=== PATIENT | male | born 1990 | race Caucasian/White ===

== ENCOUNTER 2020-07-27 00:33 | Emergency (ER) | payer OTHER, SELFPAY ==
[2020-07-27] VITALS (9 sets, daily range): BP systolic 99–155; BP diastolic 38–92; PULSE 79–100; RESP 18–28; TEMP 36.3–36.4; O2SAT 94–95; BMI 28.8
--- NOTE | 2020-07-27 00:49 | ED_ITS ---
HPI - Psych General Chief Complaint: Psychiatric Symptoms Stated Complaint: crisis/SI/HI Time Seen by Provider: 07/27/20 00:39 Source: EMS Mode of arrival: EMS Limitations: altered mental status History of Present Illness HPI Narrative: patient is brought by EMS and police department. Patient called 911 because he said he wanted to kill himself. On arrival, patient was very combative, tried punching EMS and police department, also tried biting them. Patient was restrained and brought to the emergency room. At this time, patient is intoxicated with alcohol, belligerent and very combative, keeps trying to k ick, punch and bite the staff. Patient yelling that he will kill everybody in the pod complaint: substance abuse Related Data Allergies Allergy/AdvReac Type Severity Reaction Status Date / Time No Known Allergies Allergy Verified 07/27/20 00:39 Review of Systems Review of Systems: Yes Unobtainable due to mental status PMFSH Past Medical History Medical History (Updated 07/27/20 @ 01:30 by Laura Priest) Alcohol abuse Anxiety Delusions Depression Suicidal behavior Suicidal ideation Social History Social History Alcohol intake: current Alcohol intake frequency: 3 or more drinks per day Alcohol type: beer, wine and hard liquor Smoking Status: Current every day smoker Use of substances other than those prescribed or required for medical reasons: Refusing to respond Physical Exam Vital Signs: Vital Signs: Last Vital Signs Temp 97.6 F 07/27/20 01:15 Pulse 100 07/27/20 01:15 Resp 18 07/27/20 01:15 BP 99/38 L 07/27/20 01:15 Pulse Ox 95 07/27/20 01:15 Body Mass Index 28.8 Appearance: Alert. combative, belligerent, trying to punch, kick and bite people Eyes: Pupils equal, round and reactive to light. ENT: Pharynx normal. Neck: Normal inspection. CVS: tachycardic Respiratory: No respiratory distress. Abdomen: Soft and nontender. Skin: Skin warm and dry. . Extremities: No lower extremity edema. No lower extremity edema. No Lacerations. No Rash Neuro: GOVERNMENT RELATIONS MANAGER 2 through 12 grossly intact Psych: making SI and HI statements, intoxicated, belligerent and combative Course Course Course Narrative: after 1 hour, restraints were removed, patient is calm, sleeping MDM - Psych Restraints Face to Face Assessment: Face to Face Assessment: Current Situation: After assessment of the patient, a review of the pertinent medical record and a discussion with nursing staff, I feel the patient requires a restrain intervention. Reaction To: [] Medical Condition: [] Behavioral State: [] Continued Need: [] Critical Care Time Critical Care Time Total Critical Care Time: 60
--- NOTE | 2020-07-27 01:49 | PC.NURSE ---
Documentation of behavior and ems background: 0040: patient arrives by [facility] in PD custody after calling emergency services due to Suicidal Ideation. Per EMS, patient was found to be drinking a handle of tequlia, 2 glasses of wine, and approximately 6 beers. It was reported that the patient has had signficant life stressors, including a recent break up with his girlfriend and the of his mother. Patient was originally cooperative on scene, but had a dramatic change in behavior, patient became suspicious, stated that the first response crew was against him and [works]for the [employer]. Furthermore, during transport, patient attempted to create a ligature risk from hanging IV tourniquets. Upon arrival, patient was given the option to act in behavioral control to remove the need for chemical and physical restraints. patient began to rear off stretcher, clearly agitated by the use of respirator by staff You're going to gas me and give me covid. You tie me up, they fucked me up. I don't like this. You're juanita i'm like this otherwise.... Multiple security officers and [employer] facilitated the movement from EMS Stretcher to bed. Patient began screaming and continued to exhibit unsafe behavior. Multiple attempts made to verbally deescalate behavior by various staff members without a positive response. 0045: patient medicated with IM 5mg Haldol, 2mg Ativan, 50mg Benadryl per md order. Patient unable to be changed over due to unsafe behavior. sitter at bedside 1;1 0100: patient remains out of behavioral control at this time. Patient screaming I NEED MEDICAL ATTENTION. What's your name?! mutiple attempts made to reoriented patient to place, time, and event. 0105: patient is now calm affect and willing to be communicated with staff. [place] Scale completed. Vague plan reported, but has confirmed SI attempt in past. Though process remains disorganized at this time. sitter remains 1;1 a this time. 0115: patient is calm and resting at this time. thought process is disorganized. continuing to monitor at this time for behavioral control.
[2020-07-27] MEDS: LORazepam 2 MG/ML VIAL IM (02:11)
[2020-07-27] MEDS: Haloperidol Lactate 5 MG/ML VIAL IM (02:11)
[2020-07-27] MEDS: diphenhydrAMINE HCL 50 MG/ML VIAL IM (02:12)
--- NOTE | 2020-07-27 06:28 | PC.NURSE ---
PT woke up drowsy, but calm and cooperative. He provided a urine sample at this time. PT asked when he would be seen by the doctor.
[2020-07-27 07:16] LABS: Amphetamine Screen Urine Not Detected (Not Detect); Barbiturates, Urine Not Detected (Not Detect); Benzodiazepines Screen Urine Not Detected (Not Detect); Cannabinoid Screen Urine Not Detected (Not Detect); Cocaine Screen Urine Not Detected (Not Detect); Opiate Screen Urine Not Detected (Not Detect); Phencyclidine Screen Urine Not Detected (Not Detect)
[2020-07-27 10:31] LABS: Ethanol 140 mg/dL
--- NOTE | 2020-07-27 11:39 | PC.NURSE ---
Report received. Pt currently asleep. No signs of distress. Respirations even, nonlabored.
--- NOTE | 2020-07-27 12:39 | PC.NURSE ---
[facility] faxed and called, spoke with Mally.
--- NOTE | 2020-07-27 13:36 | PC.NURSE ---
Pt resting in bed, no complaints, calm and cooperative. Waiting to be seen by [facility].
--- NOTE | 2020-07-27 14:27 | PC.NURSE ---
[facility] meeting with patient
--- NOTE | 2020-07-27 15:05 | PC.NURSE ---
Pt watching TV in common area, calm and cooperative, awaiting discharge.
== END 2020-07-27 15:16 | disposition home or self-care (01) ==
PROVIDERS: Physician Assistant; Emergency Provider Emergency Medicine
DX: F33.1 Major depressive disorder, recurrent, moderate (principal); R45.851 Suicidal ideations; F10.129 Alcohol abuse with intoxication, unspecified; Y90.9 Presence of alcohol in blood, level not specified; F17.200 Nicotine dependence, unspecified, uncomplicated; Z71.6 Tobacco abuse counseling; Z71.51 Drug abuse counseling and surveillance of drug abuser
CPT/HCPCS: 80307; 80320; 96372; 99285; 99291; J1200; J2060

== ENCOUNTER 2020-12-25 22:26 | Emergency (ER) | payer OTHER, SELFPAY ==
--- NOTE | ~2020-12-25 | XR_ITS ---
EXAMINATION: XR CHEST CLINICAL INFORMATION: Cough COMPARISON: None TECHNIQUE: Frontal view of the chest was obtained. FINDINGS: The heart and pulmonary vessels appear normal. There are scattered slightly ill-defined pulmonary parenchymal densities seen. No pleural effusions. No CHF. XR/XR chest 1V IMPRESSION: Commonly reported imaging features of Covid 19 or viral pneumonia are present. Other processes such as influenza pneumonia or organizing pneumonia, as can be seen with drug toxicity and connective tissue disease, can cause a similar imaging pattern. No prior radiographs are available to see if any of the changes are chronic in nature.
[2020-12-25 22:27] VITALS: BP 135/75; BP 155/95; PULSE 80; PULSE 82; RESP 16; TEMP 38.2; O2SAT 95; O2SAT 96; BMI 26.4
--- NOTE | 2020-12-25 22:47 | ED.URI ---
HPI - URI/Sore Throat General Chief Complaint: Fever Stated Complaint: ?COVID,BODY ACHES,CHILLS Source: patient Mode of arrival: ambulatory Limitations: no limitations History of Present Illness HPI Narrative: 30-year-old male with no significant past medical history presents with several days of upper respiratory symptoms, cough, fevers and chills. Patient is requesting COVID-19 testing at this time. He denies chest pain or pressure, palpitations, shortness of breath, shortness of breath on exertion, abdominal pain, abdominal distention, nausea, vomiting, diarrhea, constipation, melena, hematochezia, edema, or any other concerning symptoms. MD elicited complaint: fever, cough and nasal congestion Onset (ago): day(s) Consistency: constant Severity: moderate Description of mucous: clear Able to tolerate fluids by mouth: Yes Relieving factors: nothing Associated symptoms: fever, chills, myalgias, rhinorrhea and cough Treatments prior to arrival: none Related Data Previous Rx's Medication Instructions Recorded azithromycin 250 mg PO DAILY 5 Days #5 tab 12/25/20 cefuroxime axetil 500 mg PO Q12H 7 Days #14 tab 12/25/20 Allergies Allergy/AdvReac Type Severity Reaction Status Date / Time No Known Allergies Allergy Verified 12/25/20 22:31 Review of Systems Review of Systems: Constitutional: positive Fever, positive Chills, positive fatigue, positive Malaise ENT/Mouth: positive sore throat, positive runny nose Eyes: No Discharge Cardiovascular: No Chest Pain, No SOB Respiratory: Positive Cough, No Sputum, No Wheezing, No Smoke Exposure, No Dyspnea Gastrointestinal: No Nausea, No Vomiting, No Diarrhea Genitourinary: no irregular bleeding, No Dysuria, No Urinary Frequency, No Hematuria, No Urinary Incontinence, No Urgency, No Flank Pain, Musculoskeletal: positive Myalgia Skin: No rash Neuro: No Headache Yes all other systems are reviewed and are negative [facility] Past Medical History Attestation statement: The following information was validated with the patient. Source: old records reviewed Medical History (Updated 12/25/20 @ 23:54 by Jeanne Smart NP) Alcohol abuse Anxiety Delusions Depression Suicidal behavior Suicidal ideation Social History Social History Alcohol intake: current Alcohol intake frequency: 3 or more drinks per day Alcohol type: beer, wine and hard liquor Smoking Status: Current every day smoker Advance Directives: No Advance Directives Information Provided: No Physical Exam Vital Signs: Vital Signs: Last Vital Signs Temp 100.7 F H 12/25/20 22:27 Pulse 82 12/25/20 22:27 Resp 16 12/25/20 22:27 BP 155/95 H 12/25/20 22:27 Pulse Ox 96 12/25/20 22:27 Body Mass Index 26.4 Appearance: Alert. Oriented X3. Mild distress. Eyes: Pupils equal, round and reactive to light. EOMI, sclera nonicteric ENT: Pharynx normal. Moist mucous membranes. Neck: Normal inspection. Neck supple. CVS: Normal heart rate and rhythm. Pulses normal. Respiratory: No respiratory distress. Lung sounds clear to auscultation all lobes. Abdomen: Soft and nontender. Skin: Skin warm and dry. Normal skin color. Normal skin turgor. Extremities: No lower extremity edema. Moves all extremities against resistance. Neuro: No motor deficit. No sensory deficit. Cranial nerves 2-12 intact. Course Course Course Narrative: 30-year-old male presents with upper respiratory symptoms consistent with COVID-19. Will test for COVID-19 and chest x-ray Chest x-ray is positive for COVID-19 infiltrates. Will treat with azithromycin and cefuroxime. Patient's O2 sat is 96% on room air, patient is not short of breath and does not have any adventitious lung sounds. COVID test is positive. Patient will be discharged home with supportive measures. Patient verbalized understanding of and agrees to plan of care along with state and Federal guidelines for social isolation for COVID-19. MDM - URI/Sore Throat Differential Diagnosis Differential diagnosis: Likely upper respiratory infection, viral infection, bronchitis, influenza and pharyngitis Medical Records Attestation: I reviewed the patient's medical records. Lab Data Attestation: I reviewed the patient's lab results. Imaging Data Chest x-ray: Attestation: I personally reviewed and interpreted this imaging study as follows: Radiologist's impression: EXAMINATION: XR CHEST CLINICAL INFORMATION: Cough COMPARISON: None TECHNIQUE: Frontal view of the chest was obtained. FINDINGS: The heart and pulmonary vessels appear normal. There are scattered slightly ill-defined pulmonary parenchymal densities seen. No pleural effusions. No CHF. XR/XR chest 1V IMPRESSION: Commonly reported imaging features of Covid 19 or viral pneumonia are present. Other processes such as influenza pneumonia or organizing pneumonia, as can be seen with drug toxicity and connective tissue disease, can cause a similar imaging pattern. No prior radiographs are available to see if any of the changes are chronic in nature. Discharge Plan Discharge Clinical Impression: COVID-19 Patient Disposition: Home, Self-Care Instructions: COVID-19 (Coronavirus Disease 2019) (ED) Additional Instructions: Your evaluated in the emergency department for upper respiratory symptoms consistent with COVID-19. Your x-ray is positive for COVID-19. Please maintain social isolation for State and Federal guidelines. Is your responsibility to maintain these guidelines. Please take all medications as prescribed. Complete the entire course of these medications. Thank you for choosing this emergency department for evaluation. Please follow-up with primary care physician as needed. Return to the emergency department for any new, concerning, or worsening symptoms. Prescriptions: New azithromycin 250 mg tablet 250 mg PO DAILY 5 Days Qty: 5 RF: 0 cefuroxime axetil 500 mg tablet 500 mg PO Q12H 7 Days Qty: 14 RF: 0
--- NOTE | 2020-12-25 23:43 | PC.NURSE ---
COVID/Flu/RSV swab obtained and sent to lab for analysis. Awaiting results. Pending X-Ray results, plan for discharge home. Plan to medicate with Motrin for fever of 100.7F orally.
[2020-12-26] MEDS: Azithromycin 500 MG TABLET PO (00:16)
[2020-12-26] MEDS: Ibuprofen 600 MG TABLET PO (00:16)
[2020-12-26 00:20] LABS: Influenza A PCR NEGATIVE (Negative); Influenza B PCR NEGATIVE (Negative); Resp Syncy Virus RNA Qual PCR NEGATIVE (Negative)
[2020-12-26 00:28] LABS: SARS COV2 PCR INHOUSE POSITIVE (Negative)
== END 2020-12-26 00:44 | disposition home or self-care (01) ==
PROVIDERS: Nurse Practitioner Family; Emergency Provider Emergency Medicine
DX: U07.1 COVID-19 (principal); R50.9 Fever, unspecified
CPT/HCPCS: 0241U; 36415; 71045; 99283

== ENCOUNTER 2025-09-10 16:24 | Emergency (ER) | payer OTHER, SELFPAY ==
--- NOTE | ~2025-09-10 | CT_ITS ---
CLINICAL HISTORY: headache with paresthesia CT head without contrast Comparison: None provided Findings: No intra-axial mass, midline shift, hydrocephalus, or acute hemorrhage. No significant atrophy-like change or white matter disease. There is no sinus or mastoid fluid. The orbits are within normal limits. There is no acute fracture. IMPRESSION: 1. No acute intracranial findings. This document has been electronically signed by: Olya Putnam MD on 09/10/2025 17:56:38
--- NOTE | 2025-09-10 16:30 | ED_ITS ---
[facility] - General Adult General Chief complaint: Neuro Symptoms/Deficit Stated complaint: sudden dizziness, blurred vision Time Seen by Provider: 09/10/25 16:32 Source: patient Mode of arrival: ambulatory Limitations: no limitations History of Present Illness ED Provider: Dr. Gomez [facility] narrative: 35-year-old male presented hospital today for evaluation of sudden onset of dizziness, lip tingling sensation, heaviness all over his body and headache. Patient denies any recent illness. The patient has no medical history. Patient stated that this started around noon time. Patient denies any weakness. He denies any vertiginous symptoms. Patient is a stated that he has tingling sensation in bilateral lips area. Also has a headache. Related Data Previous Rx's ?Medication ?Instructions ?Recorded azithromycin 250 mg tablet 250 mg PO DAILY 5 days #5 t abs 12/25/20 cefuroxime axetil 500 mg tablet 500 mg PO Q12H 7 days #14 tabs 12/25/20 Allergies Allergy/AdvReac Type Severity Reaction Status Date / Time No Known Allergies Allergy Verified 09/10/25 16:35 Review of Systems 2 Review of Systems: Pertinent review of systems as mentioned in HPI. All other system otherwise negative. [facility] Past Medical History [facility] Narrative: None Medical History Delusions Suicidal ideation Suicidal behavior Anxiety Depression Alcohol abuse Social History Social History Alcohol intake: current Alcohol intake frequency: 3 or more drinks per day Alcohol type: beer, wine and hard liquor Smoked in Last 30 Days: No Use of substances other than those prescribed or required for medical reasons: No Advance Directives: No Advance Directives Information Provided: No Physical Exam ED Exam Exam: General: Pleasant, no distress, interacting appropriately Head: Normacephalic, atraumatic ENT: oral mucosa moist, neck supple, no tracheal deviation Cardiovascular: regular rate, regular rhythm, no murmurs, rubbing, gallops Respiratory: CTAB, no wheeze, rales, rhonchi Gastrointestinal: Soft, non distended, non tender, non guarding Neurological: Awake and alert, no facial droop noted, see NIH score for stroke evaluation. Skin: Warm and dry Psychiatric: Appropriate mood and thoughts Vital Signs: Vital Signs - 24 hr 09/10/25 16:32 Temperature 98.6 F Pulse Rate 84 Respiratory Rate 18 Blood Pressure 140/97 H Pulse Oximetry 97 Oxygen Delivery Method Room Air BMI result Body Mass Index 30.2 NIH Stroke Scale Level of Consciousness: Alert Level of Consciousness Questions: Answers both questions correctly Level of Consciousness Commands: Performs both tasks correctly Best Gaze: Normal Visual: No visual loss Facial Palsy: Normal Motor Arm (Right): No drift Motor Arm (Left): No drift Motor Leg (Right): No drift Motor Leg (Left): No drift Limb Ataxia: Absent Sensory: Normal Best Language: No aphasia Dysarthia: Normal Extinction and Inattention: No abnormality Score: 0 Medications Administered Discontinued Medications Generic Name Dose Route Start Last Admin Trade Name Freq PRN Reason Stop Dose Admin Acetaminophen 975 mg 09/10/25 16:32 09/10/25 16:42 Acetaminophen 325 Mg Tablet PO 09/10/25 16:33 975 mg ONCE ONE Administration Sodium Chloride 1,000 mls @ 999 mls/hr 09/10/25 16:45 09/10/25 17:59 Ns IV 09/10/25 17:45 Infused .Q1H1M OLIVIA Infusion Magnesium Sulfate 2 gm in 50 mls @ 50 mls/hr 09/10/25 16:32 09/10/25 17:59 Magnesium Sulfate/H2o IV 09/10/25 17:31 Infused ONCE ONE Infusion Metoclopramide HCl 5 mg 09/10/25 16:32 09/10/25 16:43 Metoclopramide Hcl 10 Mg/2 Ml Vial IV 09/10/25 16:33 5 mg ONCE ONE Administration Medical Decision Making Medical Decision Making [facility] Narrative: 35-year-old male no medical history presented hospital today for sudden onset of numbness tingling in the lips, headache, and heaviness all over his body. Patient's presentation is very atypical for a stroke. I did consider TNK for the patient however patient is unfortunately outside the time window at this time. Patient's symptoms is not lateralizing. I do not think patient has a stroke. We will obtain basic lab work this time. We will treat patient's as a complex migraine. We will obtain basic lab work. CT head will be obtained to rule out any signs of intracranial bleed or neoplasm. Plan to give IV fluid Reglan magnesium sulfate to treat his headache. I did consider TNK however patient is not TNK candidate due to timing and NIH score of 0. Patient's lab work is unremarkable, Lyme test is pending at this time. CT head negative. We will plan to discharge patient home. I do not think patient is having a stroke. Differential Diagnosis Differential Diagnoses: The differential diagnosis associated with the presentation includes CVA, migraine, lightheadedness, dizziness Lab Data MDM Lab Attestation statement: I reviewed the patient's lab results. 09/10/25 16:47 09/10/25 16:47 Labs: Lab Results 09/10/25 Range/Units 16:47 WBC 5.7 (4.8-10.8) X10*3/uL RBC 5.20 (4.60-5.80) X10*6/uL Hgb 15.8 (14.0-18.0) g/dl Hct 45.9 (42.0-52.0) % MCV 88.3 (80.0-98.0) fL MCH 30.4 (27.0-33.0) pg MCHC 34.4 (31.0-36.0) g/dl RDW 11.9 (11.0-16.0) % Plt Count 213 (160-400) X10*3/uL MPV 10.0 (9.4-12.4) fL Immature Gran % (Auto) 0.5 H (0.0-0.4) % Neut % (Auto) 54.1 (45-73) % Lymph % (Auto) 31.8 (20-40) % [place] % (Auto) 8.3 (2-11) % Eos % (Auto) 4.1 H (0-4) % Baso % (Auto) 1.2 (0-2) % Lymph # (Auto) 1.8 (1.2-4.9) X10*3/uL [place] # (Auto) 0.5 (0.1-1.2) X10*3/uL Eos # (Auto) 0.2 (0.0-0.4) X10*3/uL Baso # (Auto) 0.1 (0.0-0.2) X10*3/uL Abs Immat Gran (auto) 0.03 (0.00-0.03) X10*3/uL Absolute Neuts (auto) 3.1 (2.0-8.3) x10*3/uL Absolute Nucleated RBC 0.000 (0.0-0.012) X10*3/uL Nucleated RBC % (auto) 0.0 (0.0-0.2) /100WBC Sodium 138 (135-145) mmol/L Potassium 3.7 (3.3-5.1) mmol/L Chloride 107 (96-108) mmol/L Carbon Dioxide 23 (22-29) mmol/L Anion Gap 12 (12-20) BUN 20 H (9-16) mg/dL Creatinine 1.07 (0.5-1.4) mg/dL Estim Creat Clear Calc 115.1 Estimated GFR > 60 Random Glucose 115 (60-115) mg/dL Calcium 9.0 (8.4-10.2) mg/dL Magnesium 1.9 (1.6-2.6) mg/dL Independent Interpretation I performed an independent interpretation of an: CT Scan Radiology Impression Discussion of test interpretation with radiology: I have reviewed the radiologist's reading. Critical Care Time Critical Care Time Critical Care Time: Yes Total Critical Care Time: 40 Attestation: Time is exclusive of separately billable procedures. Time includes: direct patient care, patient reassessment, coordination of patient care, interpretation of data (laboratory data, pulse oximetry, arterial blood gases and chest xrays), review of patient's medical records, medical consultation and documentation of patient care. Procedures excluded from critical care time: central intravenous line placement and electrocardiography. Discharge Plan Discharge Clinical Impression: Light-headedness Patient Disposition: Home, Self-Care Additional Instructions: Follow up with PCP about your lyme test result. Prescriptions: No Action azithromycin 250 mg tablet 250 mg PO DAILY 5 Days Qty: 5 0RF cefuroxime axetil 500 mg tablet 500 mg PO Q12H 7 Days Qty: 14 0RF Print Language: Ukrainian
[2025-09-10 16:32] VITALS: BP 140/97; BP 170/80; PULSE 70; PULSE 84; RESP 18; TEMP 37; O2SAT 97; BMI 30.2
[2025-09-10] MEDS: Magnesium Sulfate/H2O 2 GM/50 ML PIGGYBACK IV (16:43)
[2025-09-10 16:54] LABS: MANUAL DIFF FLAG NO
[2025-09-10 16:56] LABS: Hematocrit 45.9 % (42.0-52.0); Hemoglobin 15.8 g/dl (14.0-18.0); Imm Gran Abs Auto 0.03 X10*3/uL (0.00-0.03); Imm Gran Pct Auto 0.5 % (0.0-0.4); Lymphocytes Absolute Auto 1.8 X10*3/uL (1.2-4.9); Mean Corpuscular HGB Conc 34.4 g/dl (31.0-36.0); Mean Corpuscular Hemoglobin 30.4 pg (27.0-33.0); Mean Corpuscular Volume 88.3 fL (80.0-98.0); NRBC Abs Auto 0.000 X10*3/uL (0.0-0.012); NRBC Pct Auto 0.0 /100WBC (0.0-0.2); Platelet Count 213 X10*3/uL (160-400); Red Blood Count 5.20 X10*6/uL (4.60-5.80); White Blood Count 5.7 X10*3/uL (4.8-10.8)
[2025-09-10 17:16] LABS: Anion Gap 12 (12-20); Blood Urea Nitrogen 20 mg/dL (9-16); Calcium 9.0 mg/dL (8.4-10.2); Carbon Dioxide 23 mmol/L (22-29); Chloride 107 mmol/L (96-108); Creatinine Clr Calc Pharmacy 115.1; Estimated Glomerular Filt Rate > 60; Magnesium 1.9 mg/dL (1.6-2.6); Potassium 3.7 mmol/L (3.3-5.1); Sodium 138 mmol/L (135-145)
[2025-09-10 19:51] VITALS: BP 137/80; PULSE 64; RESP 14; TEMP 36.5; O2SAT 95
[2025-09-10 20:18] VITALS: BP 137/80; PULSE 64; RESP 14; TEMP 36.5; O2SAT 95
[2025-09-11 21:19] LABS: Lyme Disease DNA PCR NOT DETECTED (NOT DETECTED)
== END 2025-09-10 20:19 | disposition home or self-care (01) ==
PROVIDERS: Emergency Provider Student in an Organized Health Care Education/Training Program
DX: R42 Dizziness and giddiness (principal); H53.8 Other visual disturbances; R51.9 Headache, unspecified; R20.2 Paresthesia of skin
CPT/HCPCS: 36415; 70450; 80048; 83735; 85025; 96361; 96374; 99285; J2765; J3475

== ENCOUNTER → 2025-09-10 16:32 | Outpatient (BNV) | payer OTHER, SELFPAY | PROVIDERS: Emergency Provider Student in an Organized Health Care Education/Training Program; Visit Provider Radiology Diagnostic Radiology | DX: R51.9 Headache, unspecified (principal); R20.2 Paresthesia of skin | CPT/HCPCS: 70450 ==

== ENCOUNTER 2025-09-14 17:05 | Emergency (ER) | payer OTHER, SELFPAY ==
--- NOTE | 2025-09-14 | ECG_ITS ---
Test Reason : CP Blood Pressure : */* mmHG Vent. Rate : 62 BPM Atrial Rate : 62 BPM P-R Int : 124 ms QRS Dur : 86 ms QT Int : 410 ms P-R-T Axes : 11 29 35 degrees QTcB Int : 416 ms Normal sinus rhythm Normal ECG No previous ECGs available Referred By: Generic ED Physician Electronically Signed By: AMMON CHAVES
--- NOTE | ~2025-09-14 | XR_ITS ---
CLINICAL HISTORY: cp 2 view chest x-ray. Comparison: None Findings: No consolidation or effusion. Cardiac and mediastinal contours are unremarkable. Bones unremarkable. Impression: 1. No acute pulmonary disease. This document has been electronically signed by: Mumtaz Ignacio MD on 09/14/2025 18:25:10
[2025-09-14 17:29] VITALS: BP 139/64; PULSE 68; RESP 18; TEMP 36.6; O2SAT 97; BMI 30.7
--- NOTE | 2025-09-14 17:30 | ED.CHESTPAIN ---
HPI - Chest Pain General Chief Complaint: Chest Pain Stated Complaint: chest pain Related Data Previous Rx's ?Medication ?Instructions ?Recorded azithromycin 250 mg tablet 250 mg PO DAILY 5 days #5 tabs 12/25/20 cefuroxime axetil 500 mg tablet 500 mg PO Q12H 7 days #14 tabs 12/25/20 Allergies Allergy/AdvReac Type Severity Reaction Status Date / Time No Known Allergies Allergy Verified 09/14/25 17:32 [facility] Past Medical History Medical History Delusions Suicidal ideation Suicidal behavior Anxiety Depression Alcohol abuse Social History Social History Alcohol intake: current Alcohol intake frequency: 3 or more drinks per day Alcohol type: beer, wine and hard liquor Advance Directives: No Advance Directives Information Provided: No Do you have a plan to hurt others: No Plan Physical Exam Vital Signs: Vital Signs: Last Vital Signs Temp 97.9 F 09/14/25 17:29 Pulse 68 09/14/25 17:29 Resp 18 09/14/25 17:29 BP 139/64 09/14/25 17:29 Pulse Ox 97 09/14/25 17:29 O2 Del Method Room Air 09/14/25 17:29 BMI result Body Mass Index 30.7 Course Course Course Narrative: This is a Rapid Medical Exam performed in triage by Ny Gabriel PA-C. Full HPI, ROS and PE to be performed by primary ED provider. 35 yo M presenting to the ED c/o intermittent chest pain worsening today w/assoc SOB. Patient was seen in ED on Saturday for other sx. Admits to sx x years but worsening today. PE: talking in complete sentences, NAD, nontoxic appearing Plan: EKG, labs, CXR, SARs Medical Decision Making Lab Data 09/14/25 19:21 09/14/25 19:21 Labs: Lab Results 09/14/25 Range/Units 19:21 WBC 5.6 (4.8-10.8) X10*3/uL RBC 5.29 (4.60-5.80) X10*6/uL Hgb 16.0 (14.0-18.0) g/dl Hct 47.6 (42.0-52.0) % MCV 90.0 (80.0-98.0) fL MCH 30.2 (27.0-33.0) pg MCHC 33.6 (31.0-36.0) g/dl RDW 12.1 (11.0-16.0) % Plt Count 221 (160-400) X10*3/uL MPV 10.2 (9.4-12.4) fL Immature Gran % (Auto) 0.4 (0.0-0.4) % Neut % (Auto) 60.7 (45-73) % Lymph % (Auto) 27.3 (20-40) % [place] % (Auto) 6.6 (2-11) % Eos % (Auto) 3.2 (0-4) % Baso % (Auto) 1.8 (0-2) % Lymph # (Auto) 1.5 (1.2-4.9) X10*3/uL [place] # (Auto) 0.4 (0.1-1.2) X10*3/uL Eos # (Auto) 0.2 (0.0-0.4) X10*3/uL Baso # (Auto) 0.1 (0.0-0.2) X10*3/uL Abs Immat Gran (auto) 0.02 (0.00-0.03) X10*3/uL Absolute Neuts (auto) 3.4 (2.0-8.3) x10*3/uL Absolute Nucleated RBC 0.000 (0.0-0.012) X10*3/uL Nucleated RBC % (auto) 0.0 (0.0-0.2) /100WBC Sodium 141 (135-145) mmol/L Potassium 4.2 (3.3-5.1) mmol/L Chloride 107 (96-108) mmol/L Carbon Dioxide 27 (22-29) mmol/L Anion Gap 11 L (12-20) BUN 16 (9-16) mg/dL Creatinine 0.95 (0.5-1.4) mg/dL Estim Creat Clear Calc 130.6 Estimated GFR > 60 Random Glucose 95 (60-115) mg/dL Calcium 9.3 (8.4-10.2) mg/dL Total Bilirubin 0.7 (0.0-1.0) mg/dL Direct Bilirubin 0.2 (0.0-0.5) mg/dL AST 31 (5-37) U/L ALT 43 H (0-40) U/L Alkaline Phosphatase 73 (39-117) U/L Troponin I High Sens < 2.7 (<3.5-35.0) ng/L Total Protein 7.8 (6.5-8.0) g/dL Albumin 4.7 (3.5-5.0) g/dL TSH 0.95 (0.32-4.0) uIU/mL Influenza Type A (PCR) NEGATIVE (Negative) Influenza Type B (PCR) NEGATIVE (Negative) RSV RNA Qual (PCR) NEGATIVE (Negative) SARS-CoV-2 RNA (RT-PCR) NEGATIVE (Negative) Discharge Plan Discharge Clinical Impression: Chest pain Patient Disposition: Left W/O Completing Treatment Prescriptions: No Action azithromycin 250 mg tablet 250 mg PO DAILY 5 Days Qty: 5 0RF cefuroxime axetil 500 mg tablet 500 mg PO Q12H 7 Days Qty: 14 0RF Discharge Date/Time: 09/14/25 22:22
[2025-09-14 19:27] LABS: MANUAL DIFF FLAG NO
[2025-09-14 19:44] LABS: Alanine Aminotransferase 43 U/L (0-40); Albumin Level 4.7 g/dL (3.5-5.0); Alkaline Phosphatase 73 U/L (39-117); Anion Gap 11 (12-20); Aspartate Amino Transferase 31 U/L (5-37); Blood Urea Nitrogen 16 mg/dL (9-16); Calcium 9.3 mg/dL (8.4-10.2); Carbon Dioxide 27 mmol/L (22-29); Chloride 107 mmol/L (96-108); Creatinine Clr Calc Pharmacy 130.6; Estimated Glomerular Filt Rate > 60; Potassium 4.2 mmol/L (3.3-5.1); Sodium 141 mmol/L (135-145); Total Protein 7.8 g/dL (6.5-8.0)
[2025-09-14 19:46] LABS: Hematocrit 47.6 % (42.0-52.0); Hemoglobin 16.0 g/dl (14.0-18.0); Imm Gran Abs Auto 0.02 X10*3/uL (0.00-0.03); Imm Gran Pct Auto 0.4 % (0.0-0.4); Lymphocytes Absolute Auto 1.5 X10*3/uL (1.2-4.9); Mean Corpuscular HGB Conc 33.6 g/dl (31.0-36.0); Mean Corpuscular Hemoglobin 30.2 pg (27.0-33.0); Mean Corpuscular Volume 90.0 fL (80.0-98.0); NRBC Abs Auto 0.000 X10*3/uL (0.0-0.012); NRBC Pct Auto 0.0 /100WBC (0.0-0.2); Platelet Count 221 X10*3/uL (160-400); Red Blood Count 5.29 X10*6/uL (4.60-5.80); White Blood Count 5.6 X10*3/uL (4.8-10.8)
[2025-09-14 19:51] LABS: Troponin-I High Sensitivity < 2.7 ng/L (<3.5-35.0)
[2025-09-14 20:12] LABS: Resp Syncy Virus RNA Qual PCR NEGATIVE (Negative); SARS COV2 PCR INHOUSE NEGATIVE (Negative)
== END 2025-09-14 22:22 | disposition left against medical advice (07) ==
PROVIDERS: Physician Assistant; Emergency Provider Emergency Medicine
DX: R07.9 Chest pain, unspecified (principal); Z03.818 Encounter for observation for suspected exposure to other biological agents ruled out; R06.02 Shortness of breath; Z79.899 Other long term (current) drug therapy
CPT/HCPCS: 36415; 71046; 80048; 80076; 84443; 84484; 85025; 87637; 93005; 99281; 99283

== ENCOUNTER → 2025-09-14 17:09 | Outpatient (BNV) | payer OTHER, SELFPAY | PROVIDERS: Emergency Provider Emergency Medicine; Visit Provider Internal Medicine | DX: R07.9 Chest pain, unspecified (principal) | CPT/HCPCS: 93010 ==

== ENCOUNTER → 2025-09-14 17:32 | Outpatient (BNV) | payer OTHER, SELFPAY | PROVIDERS: Visit Provider Radiology Diagnostic Radiology | DX: R07.9 Chest pain, unspecified (principal) | CPT/HCPCS: 71046 ==